=== PATIENT | male | born 1980 | race Caucasian/White ===

== ENCOUNTER 2019-02-24 20:40 | Emergency (ER) | payer MEDICAID ==
[~2019-02-24] VITALS: Ht 170.2 cm; Wt 61.7 kg
--- NOTE | 2019-02-24 20:45 | NUR ---
pt to er bb ra for auditory hallucinations s/p using meth. No immediate signs of distress noted. pt vital signs stable. Pt a/ox3. Pt denies si/hi. pt to er bed, changed into gown and connected to monitor. will continue to monitor pt.
[2019-02-24] MEDS ORDERED: LORAZEPAM 1 MG TABLET ONE (20:57)
[2019-02-24] MEDS ORDERED: OLANZAPINE 5 MG TABLET ONE ×2 (20:58→22:08)
[2019-02-24] MEDS ORDERED: LORAZEPAM 1 MG TABLET PO ONE (21:00)
[2019-02-24] MEDS ORDERED: OLANZAPINE 5 MG TABLET PO ONE ×2 (21:00→22:00)
--- NOTE | 2019-02-24 21:03 | NUR ---
URINE COLLECTED AND SENT TO LAB
[2019-02-24 21:20] LABS: BASOPHILS # (AUTO) 0.1 /CMM (0.0-0.2); BASOPHILS % (AUTO) 0.5 % (0.0-2.0); EOSINOPHILS % (AUTO) 0.6 % (0.0-6.0); HEMATOCRIT 48 % (39-51); HEMOGLOBIN 16.4 g/dL (13.5-17.5); LYMPHOCYTES # (AUTO) 1.8 /CMM (0.8-4.8); LYMPHOCYTES % (AUTO) 16.1 % (20.0-44.0); MEAN CORPUSCULAR HGB CONC 34 g/dl (31.0-36.0); MEAN CORPUSCULAR VOLUME 97 fL (80-96); MONOCYTES % (AUTO) 8.6 % (2.0-12.0); NEUTROPHILS # (AUTO) 8.2 /CMM (1.8-8.9); NEUTROPHILS % (AUTO) 74.2 % (43.0-81.0); PLATELET COUNT (AUTO) 259 /CMM (150-450); RED BLOOD CELL COUNT(AUTO) 4.92 MIL/uL (4.5-6.0)
[2019-02-24 21:21] LABS: APPEARANCE,URINE Clear (CLEAR); BILIRUBIN,URINE Negative (NEGATIVE); BLOOD, URINE Negative Ery/uL (NEGATIVE); COLOR,URINE Yellow (YELLOW); KETONES,URINE 15 (NEGATIVE); LEUKOCYTE ESTERASE ,URINE Small (NEGATIVE); NITRITE, URINE Negative (NEGATIVE); PROTEIN,URINE Negative (NEGATIVE); UGLUCOSE Negative (NEGATIVE); UROBILINOGEN,URINE 0.2 EU/dL (0.2)
[2019-02-24 21:29] LABS: BACTERIA,URINE 1+ /HPF (None Seen); RBC,URINE NONE SEEN /HPF (0-2); SQUAMOUS EPITHELIAL CELL,UR Few /HPF (None Seen)
[2019-02-24 21:30] LABS: CALCIUM, SERUM 9.2 mg/dL (8.5-10.1); CARBON DIOXIDE 24 mmol/L (21-32); CHLORIDE 103 mmol/L (98-107); GLUCOSE 85 mg/dL (74-106); POTASSIUM 4.5 mmol/L (3.5-5.1); SODIUM SERUM 139 mmol/L (136-145); UREA NITROGEN, BLOOD 18 mg/dL (7-18)
[2019-02-24 21:38] LABS: ACETAMINOPHEN < 2 ug/ml (10-30); ALANINE AMINOTRANSFERASE 25 U/L (12-78); ALBUMIN 3.7 g/dL (3.4-5.0); ALCOHOL, BLOOD < 3 mg/dL (0-0); ALKALINE PHOSPHATASE 120 U/L (46-116); ASPARTATE AMINOTRANSFERASE 29 U/L (15-37); BILIRUBIN,DIRECT 0.1 mg/dL (0.0-0.2); BILIRUBIN,TOTAL 0.5 mg/dL (0.2-1.0); SALICYLATE 4.5 mg/dL (2.8-20.0); TOTAL PROTEIN, SERUM 7.3 g/dL (6.4-8.2)
[2019-02-24] MEDS ORDERED: CEFTRIAXONE 1 G VIAL IM ONE (22:00)
[2019-02-24] MEDS ORDERED: AZITHROMYCIN 250 MG TABLET PO ONE (22:00)
[2019-02-24] MEDS ORDERED: CEFTRIAXONE 1 G VIAL ONE (22:07)
[2019-02-24] MEDS ORDERED: LIDOCAINE /MPF 1% VIAL 5 ML VIAL ONE (22:07)
[2019-02-24] MEDS ORDERED: AZITHROMYCIN 250 MG TABLET ONE (22:07)
--- NOTE | 2019-02-25 02:05 | NUR ---
Pt sleeping in gurney. No signs of distress noted. Pt vital signs stable. Pt easily arousable.
--- NOTE | 2019-02-25 05:14 | NUR ---
PT OK TO BE DISCHARGED PER DR LOPEZ. Patient discharged to home in stable condition. Written and verbal after care instructions given. Patient upset upon discharge and refuses to sign discharge paper work and homeless waiver. Pt left er.
[2019-02-25 06:51] VITALS: BP 124/89
== END 2019-02-25 06:52 | disposition home or self-care (01) ==
LOC: ER 20:42
DX: F29 Unspecified psychosis not due to a substance or known physiological condition (principal); F15.10 Other stimulant abuse, uncomplicated; A64 Unspecified sexually transmitted disease; J45.909 Unspecified asthma, uncomplicated; F20.9 Schizophrenia, unspecified; F19.10 Other psychoactive substance abuse, uncomplicated; F10.10 Alcohol abuse, uncomplicated; R41.82 Altered mental status, unspecified; R45.1 Restlessness and agitation; F31.9 Bipolar disorder, unspecified; Y90.0 Blood alcohol level of less than 20 mg/100 ml; Z91.19 Patient's noncompliance with other medical treatment and regimen; Z59.0 Homelessness
CPT/HCPCS: 36415; 80048; 80076; 80305; 80307; 80329; 81001; 85025; 87086; 87491; 87591; 96372; 99284; G0480; J0696; J3490; 81000-TC

== ENCOUNTER 2019-02-25 05:44 | Emergency (ER) | payer MEDICAID ==
[~2019-02-25] VITALS: Ht 170.2 cm; Wt 61.7 kg
--- NOTE | 2019-02-25 06:15 | NUR ---
PT BIBSELF C/C AUDITORY HALLUCINATIONS, +SI, NO PLAN, -HI, DENIES PAIN. PT AOX3. NAD NOTED. RESP EVEN AND UNLABORED. PT IN BED 7. WILL CONTINUE TO MONITOR.
[2019-02-25] MEDS ORDERED: BENZTROPINE MESYLATE (2MG/2ML) 2 MG/2 ML AMPUL IM ONE (06:30)
[2019-02-25] MEDS ORDERED: HALOPERIDOL LACTATE INJ 5 MG/ML VIAL IM ONE (06:30)
[2019-02-25] MEDS ORDERED: BENZTROPINE MESYLATE (2MG/2ML) 2 MG/2 ML AMPUL ONE (06:38)
[2019-02-25] MEDS ORDERED: HALOPERIDOL LACTATE INJ 5 MG/ML VIAL ONE (06:38)
--- NOTE | 2019-02-25 07:42 | NUR ---
PT IN BED ASLEEP, EASILY AROUSED BY VOICE. HOOKED TO MONITOR. KEPT SAFE AND WARM. WILL CONTINUE TO MONITOR
--- NOTE | 2019-02-25 10:17 | NUR ---
SAMANTHA CALHOUN CALLED FOR EVAL
--- NOTE | 2019-02-25 11:08 | NUR ---
PT IN BED ASLEEP, TUCKED IN BLANKET. EASILY AROUSED BY VOICE. HOOKED TO MONITOR. KEPT SAFE AND WARM. WILL CONTINUE TO MONITOR
[2019-02-25] MEDS ORDERED: OLANZAPINE 5 MG TABLET PO ONE (16:00)
[2019-02-25] MEDS ORDERED: OLANZAPINE 5 MG TABLET ONE (19:43)
--- NOTE | 2019-02-26 01:08 | NUR ---
PT SLEEPING IN [place]. NO SIGNS OF DISTRESS NOTED. PT VITAL SIGNS STABLE. PT EASILY AROUSABLE. WILL CONT TO MONIOT PT.
--- NOTE | 2019-02-26 06:45 | NUR ---
[facility] at bedside. Pt cleared by [facility].
--- NOTE | 2019-02-26 06:50 | NUR ---
Pt ok to be discharged home. Pt cursing at staff upon discharge. Security at bedside to escort patient.
[2019-02-26 07:01] VITALS: BP 135/89
== END 2019-02-26 07:02 | disposition home or self-care (01) ==
LOC: ER 05:49
DX: R45.851 Suicidal ideations (principal); R44.0 Auditory hallucinations; F15.10 Other stimulant abuse, uncomplicated; F31.9 Bipolar disorder, unspecified; J45.909 Unspecified asthma, uncomplicated; F10.10 Alcohol abuse, uncomplicated; Y90.9 Presence of alcohol in blood, level not specified
CPT/HCPCS: 96372 ×2; 99284; J0515; J1630